=== PATIENT | male | born 1955 | race Caucasian/White ===

== ENCOUNTER → 2016-05-28 | Outpatient (CLI) | payer OTHER ==
[~2016-05-28] VITALS: Ht 167.6 cm; Wt 88.9 kg
[~2016-05-28] MED LIST: ASPEC81 PO
[2016-05-28 13:40] VITALS: BP 157/101; PULSE 82; Ht 167.6 cm; Wt 88.9 kg
== END | disposition home or self-care (01) ==
LOC: C.NEUR 12:52
PROVIDERS: ATTEND Internal Medicine Pulmonary Disease
DX: G47.30 Sleep apnea, unspecified (principal)

== ENCOUNTER → 2016-07-25 | Outpatient (CLI) | payer OTHER ==
[2016-07-25 12:45] LABS: ALT/SGPT 25 U/L (12-78); AST/SGOT 14 U/L (15-37); BLOOD UREA NITROGEN 12 mg/dl (7-18); BUN/CREATININE RATIO 11.9 (10-20); CALCIUM 8.6 mg/dl (8.5-10.1); CARBON DIOXIDE 31 mmol/L (21-32); CHLORIDE 107 mmol/L (98-107); CREATININE 0.98 mg/dl (0.60-1.40); GLUCOSE 99 mg/dl (70-99); POTASSIUM 4.2 mmol/L (3.5-5.1); SODIUM 142 mmol/L (136-145)
[2016-07-25 12:48] LABS: ALKALINE PHOSPHATASE 89 U/L (45-117); CHOLESTEROL 193 mg/dl (0-200); CHOLESTEROL/HDL RATIO 3.8; HDL CHOLESTEROL 51 mg/dl; LDL CHOLESTEROL CALCULATED 126 mg/dl; TRIGLYCERIDES 82 mg/dl (0-150); VERY LOW DENSITY LIPOPROT CALC 16 mg/dl
== END | disposition home or self-care (01) ==
LOC: C.LABPVFM 07:17
PROVIDERS: ATTEND Family Medicine
DX: I10 Essential (primary) hypertension (principal); E78.5 Hyperlipidemia, unspecified

== ENCOUNTER → 2016-08-22 | Outpatient (CLI) | payer OTHER | END | disposition home or self-care (01) | LOC: C.LABPVFM 07:28 | PROVIDERS: ATTEND Family Medicine | DX: Z11.59 Encounter for screening for other viral diseases (principal) ==

== ENCOUNTER → 2017-06-06 | Outpatient (CLI) | payer BC ==
[~2017-06-06] VITALS: Ht 167.6 cm; Wt 90.7 kg
[2017-06-06 13:15] VITALS: BP 167/98; PULSE 72; BMI 32.3
[2017-06-06 13:16] VITALS: BP_SYST 158; BP_SYST 168; BP_DIAS 100; BP_DIAS 97; PULSE 72; Ht 167.6 cm; Wt 90.7 kg
[2017-06-06 13:17] VITALS: BP 158/100
== END | disposition home or self-care (01) ==
LOC: C.NEUR 12:45
PROVIDERS: ATTEND Physician Assistant
DX: G47.30 Sleep apnea, unspecified (principal)

== ENCOUNTER → 2017-12-24 | Outpatient (CLI) | payer BC ==
[2017-12-24 12:54] LABS: BASO % 0.5 %; BASO ABS # 0.03 K/uL (0-0.2); EOS % 1.7 %; HEMATOCRIT 42.2 % (42-52); HEMOGLOBIN 14.1 g/dL (14.0-18.0); IG# 0.01 K/uL (0.00-0.02); LYMPH % 32.7 %; LYMPH ABS # 1.96 K/uL (1.2-3.4); MEAN CELL VOLUME 93.4 fL (80-100); MEAN CORPUSCULAR HEMOGLOBIN 31.2 pg (25-34); MEAN CORPUSCULAR HGB CONC 33.4 g/dl (32-36); MEAN PLATELET VOLUME 10.5 fL (7.4-10.4); MONO % 10.3 %; MONO ABS # 0.62 K/uL (0.11-0.59); NEUT % 54.6 %; NEUT ABS # 3.28 K/uL (1.4-6.5); PLATELET COUNT 288 K/uL (130-400); RED CELL DISTRIBUTION WIDTH CV 13.8 % (11.5-14.5); RED CELL DISTRIBUTION WIDTH SD 47.4 fL (36.4-46.3)
[2017-12-24 13:16] LABS: BLOOD UREA NITROGEN 21 mg/dl (7-18); CALCIUM 8.6 mg/dl (8.5-10.1); CARBON DIOXIDE 28 mmol/L (21-32); CREATININE 0.93 mg/dl (0.60-1.40); GLUCOSE 100 mg/dl (70-99); POTASSIUM 3.8 mmol/L (3.5-5.1); SODIUM 137 mmol/L (136-145)
== END | disposition home or self-care (01) ==
LOC: C.LABPVFM 07:29
PROVIDERS: ATTEND Family Medicine
DX: I10 Essential (primary) hypertension (principal)

== ENCOUNTER 2024-08-27 08:49 | Inpatient (IN) ==
--- NOTE | 2024-08-14 09:11 | Anesthesiology Consultation ---
Date of Service August 14, 2024 Assessment & Plan (1) Encounter for pre-operative examination: - Infectious disease screening: Per assessment on 08/14/24- No known recent infectious disease contacts or current infectious disease symptoms. - Cardiology visit (08/13/24): "ECG finding: His ECG on 07/07/24 in [place] [facility] was interpreted as atrial fibrillation. The ECG was personally reviewed with Dr. Cox and actually appears to be sinus rhythm with PACs. His ECG the following day had similar findings. Patient was provided reassurance in this regard. No current indication for anticoagulation therapy.. Syncope: Episode appeared orthostatic in nature. He had just gotten out of bed to go to the bathroom. He had not been eating normally a few days prior. Will perform a Holter monitor to further evaluate for an arrhythmia, though. Will also obtain an echocardiogram.. BP is mildly elevated today but well controlled with home monitoring. No med changes made.. Preop: Acceptable risk to proceed with upcoming TURP from a cardiovascular standpoint.Follow-up as needed, pending results of echo and Holter monitor." - Cardiology workload message (08/14/24): "I am not sure if the echo can be done prior to the procedure. The Holter monitor will not be able to be read prior since it is a 2 week monitor. However, I do not feel that he needs to have the testing done prior to the surgery, and I did indicate in my note that he is at an acceptable risk to proceed with surgery from a cardiovascular standpoint." - Holter monitor will not be completed prior to surgery (okay per cardiology). Echo does not need to be done prior to surgery from cardiology perspective. Patient acceptable risk for surgery (If Echo completed prior to surgery, will add findings for chart completion). Chart Review Chart Review: Patient NOT seen in Pre Admission Testing History Surgery Operation Date: 08/27/24 07:30 Proposed Procedures p TURP (Transurethral Resection of Prostate) - Sean Freeman MD Height/Weight Height: 5 ft 6 in Weight: 94.347 kg Allergies Allergy/AdvReac Type Severity Reaction Status Date / Time No Known Allergies Allergy Verified 08/14/24 07:28 Medications Home Medications Medication Instructions Recorded Confirmed Last Taken aspirin 81 mg tablet,delayed 1 tab PO DAILY 07/01/18 08/14/24 07/21/18 release (Aspir-Low) multivitamin 1 tab PO DAILY 07/01/18 08/14/24 07/21/18 omega 8-snk-hyk-fish oil 1,200 mg 2 cap PO DAILY 09/01/20 08/14/24 Unknown (144 mg-216 mg) capsule triamterene 37.5 1 tab PO QAM #90 tabs 06/15/24 08/14/24 Unknown mg-hydrochlorothiazide 25 mg tablet sulfamethoxazole 800 1 tab PO BID #14 tabs 08/10/24 08/14/24 Unknown mg-trimethoprim 160 mg tablet (Bactrim DS) losartan 50 mg tablet 50 mg PO QPM 08/14/24 08/14/24 Unknown simvastatin 10 mg tablet 10 mg PO QPM 08/14/24 08/14/24 Unknown Past Medical History Medical History Dyslipidemia History of atrial fibrillation 07/2024 [place] [facility] - was thought to be in A-Fib, consulted with [facility] Seen by [facility] cardio 08/13/24 Hydronephrosis Hypertension Obstructive sleep apnea CPAP UTI (urinary tract infection) Will complete bactrim 08/16/24 Past Family History Family History Mother Diabetes Grandmother (Maternal) Diabetes Other Colonic polyp No family history of breast cancer No family history of cancer Denies family history of Ovarian cancer Prostate cancer Myocardial infarction Breast cancer Colorectal cancer Cancer Past Surgical History Surgical History History of bilateral cataract extraction History of colonoscopy (2018) History of tooth extraction History of wisdom tooth extraction Hx of LASIK R/L Hx of vasectomy Social History Smoking Status: Never smoker Do You Dip or Chew Tobacco: No Hx Alcohol Use: Yes Alcohol type: beer and wine alcohol intake frequency: holidays/special occasions only Hx Substance Use: No substance use type: does not use Lab Results Anesthesia Preop Results Results Anesthesia Widget: WBC 7.51 K/ul (4.8-10.8) 08/06/24 Hgb 13.7 g/dl (14.0-18.0) L 08/06/24 Hct 40.8 % (42.0-52.0) L 08/06/24 Plt 327 K/uL (130-400) 08/06/24 Na 139 mmol/L (136-145) 08/06/24 K 4.4 mmol/L (3.5-5.1) 08/06/24 Cl 102 mmol/L (98-107) 08/06/24 CO2 31 mmol/L (21-32) 08/06/24 BUN 23 mg/dl (6-23) 08/06/24 Creat 1.31 mg/dl (0.6-1.4) 08/06/24 Glucose Level 102 mg/dl (70-99(Fasting)) H 08/06/24 Testing Laboratory Results UA (07/15/24): negative Urine culture (08/06/24): staphylococcus epidermidis Electrocardiogram Date: 07/08/24 SR with PACs at 96bpm. Minimal voltage criteria for LVH, may be normal variant (R in aVL). NS STA. Chest X-Ray Date: 07/08/24 Findings: + NAD
[2024-08-27] MEDS: LACTATED RINGER'S 1,000 ML IV SCH (08:52)
[2024-08-27] MEDS ORDERED: MIDAZOLAM HCL 1 MG/ML 2ML VIAL ONE (09:00)
[2024-08-27] MEDS ORDERED: ONDANSETRON INJ 2 MG/ML 2 ML VIAL ONE (09:00)
[2024-08-27] MEDS ORDERED: DEXAMETHASONE SOD INJ 4 MG/ML VIAL ONE (09:00)
[2024-08-27] MEDS ORDERED: fentaNYL citrate PF 100 MCG/2 ML VIAL ONE (09:00)
[2024-08-27] MEDS ORDERED: PROPOFOL IV EMULSION 10 MG/ML 20 ML VIAL IV ONE (09:00)
[2024-08-27] MEDS ORDERED: LIDOCAINE 2% 2 ML VIAL/AMP(20MG/ML) INFIL ONE (09:00)
[2024-08-27] MEDS ORDERED: NALOXONE HCL 0.4 MG/1 ML VIAL/CARP IV PRN (09:04)
[2024-08-27] MEDS ORDERED: PROMETHAZINE HCL 6.25 MG in SODIUM CHLORIDE 0.9% 50 ML IV PRN (09:04)
[2024-08-27] MEDS ORDERED: ATROPINE SULFATE 0.1 MG/ML 10ML SYR IV PRN (09:04)
[2024-08-27] MEDS ORDERED: FLUMAZENIL 0.1 MG/1 ML 10 ML VIAL IV PRN (09:04)
[2024-08-27] MEDS ORDERED: ONDANSETRON INJ 2 MG/ML 2 ML VIAL IV PRN ×2 (09:04→12:49)
[2024-08-27] MEDS ORDERED: fentaNYL citrate PF 100 MCG/2 ML VIAL IV PRN (09:04)
[2024-08-27] MEDS ORDERED: ePHEDrine sulfate 50 MG/ML AMP IV PRN (09:04)
[2024-08-27] MEDS ORDERED: ePHEDrine sulfate 50 MG/5 ML SYR ONE ×2 (09:25→10:53)
--- NOTE | 2024-08-27 10:00 | History & Physical Bridge Note ---
Date of Service August 27, 2024 History & Physical Bridge Note I have examined the patient, reviewed the History & Physical and in the interval since the performance of the History & Physical I have noted the following changes of clinical significance: no changes noted
[2024-08-27] MEDS: ceFAZolin 2000MG 2,000 MG/15 ML SYR IV SCH ×2 (10:08→18:33)
[2024-08-27] MEDS ORDERED: PHENAZOPYRIDINE HCL 200 MG TAB PO PRN (11:22)
[2024-08-27] MEDS ORDERED: oxyCODONE HCL IR 5 MG TAB (IMMEDIATE RELEASE) PO PRN (11:22)
[2024-08-27] MEDS ORDERED: ACETAMINOPHEN 325 MG TAB PO PRN (11:22)
--- NOTE | 2024-08-27 11:22 | Operative Report ---
PG Post Operative Report Pre & Post Diagnosis Operation Date: 08/27/24 10:15 Pre-Op Diagnosis: Unspecified Retention of Urine, Hydronephrosis Post-Op Diagnosis: Unspecified Retention of Urine, Hydronephrosis I identified the patient and participated in the time-out.: Yes Procedure Operation Date: 08/27/24 10:15 Actual Procedures p Transurethral Resection of Prostate - Sean Freeman MD Surgeon Sean Freeman MD An/Syq 13 Nav/C2 Operator None Estimated Blood Loss 20 Findings Consistent with Post-Op Diagnosis Specimens Prostate chips Drains 22 Slovak three-way Wright catheter, 20 cc in balloon, CBI running Anesthesia Type General Complications none Disposition Accompanied Patient To Recovery: Yes Disposition: Recovery Room Indications This is a 69-year-old male followed by urology for incomplete bladder emptying/urinary retention. He is brought to the OR for transurethral resection of the prostate. Description of Procedure The patient was identified in the holding area and informed consent was confirmed. He was taken to the operating room where general anesthesia was initiated. He was placed in the dorsal lithotomy position with all pressure points appropriately padded. He was prepped and draped in the usual sterile fashion and a preoperative timeout was performed. A well-lubricated resectoscope was inserted per urethra and panendoscopy was performed. His prostate was trilobar and significantly enlarged with intravesical protrusion. The prostate was systematically resected, starting with the median lobe, taking resection down until the capsular fibers could be identified. The proximal resection was up to the bladder neck, taking care not to injure the ureteral orifices. The distal resection extended to the verumontanum, taking care to avoid the sphincter. The lateral lobes were then resected down to the level of the capsule. Meticulous hemostasis was obtained. The prostate chips were evacuated from the bladder and sent for pathologic analysis. A final inspection demonstrated no injury to the ureteral orifices or the sphincter, no remaining prostate chips, and good hemostasis at low pressure. A 22 Fr 3-way wright catheter was placed. The balloon was inflated with 20 mL of normal saline and the catheter was attached to gravity drainage with continuous irrigation running. The patient was then awakened from anesthesia and was brought to the PACU in stable condition. I attest to the content of the Intraoperative Record and any orders documented therein. Any exceptions are noted below.
--- NOTE | 2024-08-27 12:52 | Anesthesiology Progress Note ---
Date of Service August 27, 2024 Anesthesia Post Procedure Vital Signs Vital Signs: Temp Pulse Pulse Resp BP Pulse Ox O2 Del Method 08/27/24 12:45 36.4 C L 70 12 128/75 95 Room Air 08/27/24 12:35 72 12 124/72 96 Room Air 08/27/24 12:25 70 12 125/73 95 Room Air 08/27/24 12:15 70 18 133/81 96 Room Air 08/27/24 12:05 70 18 137/81 97 Room Air 08/27/24 11:55 67 12 120/86 96 Room Air 08/27/24 11:45 68 12 116/63 96 Room Air 08/27/24 11:35 66 14 122/69 97 Room Air 08/27/24 11:25 71 12 120/71 97 Room Air 08/27/24 11:17 36 C L 76 18 143/77 H 99 Oxymask 08/27/24 08:54 36.5 C 76 18 158/83 H 98 Room Air O2 Flow Rate 08/27/24 12:45 08/27/24 12:35 08/27/24 12:25 08/27/24 12:15 08/27/24 12:05 08/27/24 11:55 08/27/24 11:45 08/27/24 11:35 08/27/24 11:25 08/27/24 11:17 6 08/27/24 08:54 Pain Intensity Penis: Pain Intensity: 2 Transfer of Care Handoff Completed per policy Notes Mental Status: alert / awake / arousable Patient Amnestic to Procedure: Yes Nausea / Vomiting: adequately controlled Pain: adequately controlled Airway Patency, RR, SpO2: stable & adequate BP & HR: stable & adequate Hydration State: stable & adequate Anesthetic Complications: no major complications apparent
[2024-08-27] MEDS: HEPARIN SOD 5,000 UNIT/0.5 ML VIAL SQ SCH (15:02)
[2024-08-27] MEDS: SIMVASTATIN 10 MG TAB PO SCH (20:28)
[2024-08-27] MEDS: LOSARTAN POTASSIUM 50 MG TAB PO SCH (20:28)
[2024-08-28] MEDS: MELATONIN 3 MG TAB PO PRN (01:56)
[2024-08-28] MEDS: TRIAMTERENE/HCTZ 37.5/25MG TAB PO SCH (08:01)
[2024-08-28 08:03] LABS: Basophils # (auto) 0.01 K/uL (0.00-0.20); Basophils % (auto) 0.1 %; Hematocrit (blood only) 34.8 % (42.0-52.0); Immature Granulocytes # (auto) 0.04 K/uL (0.01-0.20); Immature Granulocytes % (auto) 0.3 %; Lymphocytes # (auto) 1.47 K/uL (1.20-3.40); Lymphocytes % (auto) 12.2 %; Mean Corpuscular Hemoglobin 31.6 pg (25.0-34.0); Mean Corpuscular Hgb Conc 34.5 g/dL (32.0-36.0); Mean Corpuscular Volume 91.6 fL (80.0-100.0); Mean Platelet Volume 9.6 fL (9.4-12.4); Monocytes # (auto) 1.22 K/uL (0.11-0.59); Monocytes % (auto) 10.1 %; Neutrophils # (auto) 9.29 K/uL (1.40-6.50); Neutrophils % (auto) 77.3 %; Platelet Count 279 K/uL (130-400); RDW Coefficient of Variation 14.2 % (11.5-14.5); White Blood Count 12.03 K/ul (4.8-10.8)
[2024-08-28 08:36] LABS: BUN Creatinine Ratio 13.9 (10-20); Calcium 8.5 mg/dl (8.6-10.3); Creatinine Clr Calc Pharmacy 61.9 ml/min; Potassium 3.9 mmol/L (3.5-5.1)
--- NOTE | 2024-08-28 08:58 | Urology Progress Note ---
Date of Service August 28, 2024 Assessment & Plan (1) Urinary retention: (2) Hydronephrosis: Plan: - Pt POD#1 s/p TURP with Dr. Freeman - Doing well, progressing as expected - Afebrile, hemodynamically stable - Lab work reviewed - creatinine 1.22, WBC 12.03, Hgb 12.0 - 3 way Yadav catheter draining clear urine with minimal pink tinge with CBI on slow - CBI clamped during exam - will reassess later this AM - Anticipate home with Yadav catheter later today presuming urine appropriate and he continues to progress as expected - Maintain Yadav catheter upon discharge - Expected clinical course reviewed, all questions answered - Will arrange outpatient follow-up with our service for voiding trial Admission and Anticipated Discharge Date Admission Date: August 27, 2024 Subjective Patient seen and examined at bedside this morning. No acute issues overnight. Reports occasional bladder spasms. Denies nausea, vomiting, fever or chills. Yadav draining relatively clear urine with CBI on slow. CBI clamped during exam. Review of Systems Constitutional: as per Subjective / HPI Genitourinary: + as per Subjective / HPI Physical Exam Constitutional: well developed and well nourished; no acute distress Respiratory: normal respiratory effort; no respiratory distress and no labored breathing Gastrointestinal (Abdomen): Inspection/Auscultation: abdomen normal to inspection Musculoskeletal: Head/Neck/Chest: normocephalic Neurologic: moves all extremities and awake Psychiatric: Orientation: alert and oriented x 3 Genitourinary: Yadav patent and draining clear urine with minimal pink tinge, CBI on slow. CBI clamped during exam. Results & Data Vital Signs (Past 12 Hours) Vital Signs Temp Pulse Resp BP Pulse Ox O2 Del Method 08/28/24 07:01 36.9 C 71 16 142/80 H 95 Room Air 08/28/24 04:15 36.9 C 77 18 129/77 97 Room Air 08/27/24 22:52 36.5 C 84 18 151/74 H 96 Room Air PG Care Time/CCT Total # of Minutes Spent Total Time Spent with Patient: Total time spent is greater than 50% in coordination of care (as documented) at patient's floor/unit and/or counseling patient: Coding Level of Care Code None Diagnoses Urinary retention R33.9 Hydronephrosis N13.30
--- NOTE | 2024-08-28 08:59 | Discharge Summary ---
Date of Service August 28, 2024 Admission HPI Per Admitting Provider Patient with urinary retention hydronephrosis here for transurethral resection of the prostate. Principal Diagnosis Urinary retention, hydronephrosis Discharge Exam Constitutional well developed and well nourished; no acute distress Respiratory normal respiratory effort; no respiratory distress and no labored breathing Gastrointestinal (Abdomen) Inspection/Auscultation: abdomen normal to inspection Musculoskeletal Head/Neck/Chest: normocephalic Neurologic moves all extremities and awake Psychiatric Orientation: alert and oriented x 3 Genitourinary urine clear with minimal pink tinge with CBI clamped Discharge Data Allergies Allergy/AdvReac Type Severity Reaction Status Date / Time No Known Allergies Allergy Verified 08/14/24 07:28 Procedures Performed Operation Date: 08/27/24 10:15 Actual Procedures p Transurethral Resection of Prostate(Not Applicable) - Sean Freeman MD Hospital Course (1) Urinary retention: (2) Hydronephrosis: - Pt POD#1 s/p TURP with Dr. Freeman - Doing well, progressing as expected - Afebrile, hemodynamically stable - Lab work reviewed - creatinine 1.22, WBC 12.03, Hgb 12.0 - 3 way Yadav catheter draining clear urine with minimal pink tinge with CBI on slow - CBI clamped during exam - will reassess later this AM - Anticipate home with Yadav catheter later today presuming urine appropriate and he continues to progress as expected - Maintain Yadav catheter upon discharge - Expected clinical course reviewed, all questions answered - Will arrange outpatient follow-up with our service for voiding trial Total Time Total Time Spent Total Time Spent (In Minutes): 25 Discharge Plan Discharge Items Patient Disposition: Home - Self-Care Reason For Visit: BHP,URINARY RETENTION Discharge Diagnosis: BPH, urinary retention Activity: Per Instructions section Lifting: No more than 25 pounds Bathing Comment: Okay to shower after discharge Sexual Activity: Wait until after follow-up appointment Exercise/Sports: Wait until after follow-up appointment Non-emergency contact: Urologist Call non-emergency contact if: your temperature is above 101 Follow-up/Referrals: Deana Hoskins MD [Primary Care Provider] - Diet: Carb Consistent or DM2 Addtl Attending Provider Instructions: The surgery you had was TURP (Trans-urethral resection of the prostate) Please take all medications as prescribed and keep all follow-ups as scheduled. Please call our office at [phone] with any questions, concerns or need to reschedule appointments for any reason. We are happy to assist you. Medications: -Please resume your normal medications as previously prescribed. -Take a stool softener such as colace or Miralax to keep your stool soft. The goal is one soft bowel movement daily. -For pain, it is ok to take tylenol. You can also try pyridium (also known as AZO). This can be gotten [id number]. It turns your urine a bright orange color. -You have been prescribed an antibiotic (Bactrim). Please take this twice daily for the next 5 days. Activity: -Avoid straining or bearing down for the next 1-2 weeks. This can cause or increase bleeding. Avoiding straining to have bowel movements. -If you notice blood in your urine, try to remain well-hydrated to keep the urine dilute. -For the next 2 weeks, avoid activities that put pressure on your perineum (area behind the scrotum), such as riding a bike. What to expect after your procedure: -If a catheter was left in place, we will have you come to the office in the next couple days to remove it. -You may notice some blood in your urine. As long as your catheter is draining, this is ok. -You may have increased urinary frequency and urgency; this should improve with time. -You may notice some urinary leaking, especially with coughing/sneezing/bearing down. This should improve with time. When to call [facility] at [phone]: Fever of 101F or higher Heavy bleeding Pain that is not controlled with medicine Uncontrolled vomiting Problems urinating or inability to urinate Our office will call to schedule an appointment for catheter removal. Pending Studies at Discharge: Yes Stand-Alone Forms: [facility] Medications and DC Order Prescriptions: New sulfamethoxazole-trimethoprim [Bactrim DS] 800-160 mg tablet 1 tab PO BID 5 Days Qty: 10 0RF Continued sulfamethoxazole-trimethoprim [Bactrim DS] 800-160 mg tablet 1 tab PO BID Qty: 14 0RF Patient Comments: "This will be done 08/16/24" triamterene-hydrochlorothiazid 37.5-25 mg tablet 1 tab PO QAM Qty: 90 3RF simvastatin 10 mg tablet 10 mg PO QPM Qty: 90 3RF Rx Instructions: TAKE 1 TABLET DAILY omega 2-cwv-rqc-fish oil 1,200 (144-216) mg capsule 2 cap PO DAILY multivitamin Tablet 1 tab PO DAILY aspirin [Aspir-Low] 81 mg Tablet,Delayed Release (Dr/Ec) 1 tab PO DAILY losartan 50 mg tablet 50 mg PO QPM Discharge Orders: Discharge Order (Routine); Ordered 08/28/24 Ordered By: Janki Spring Admission Data Admit Date/Time: 08/27/24 12:49 Attending Provider: Sean Freeman Admit Provider: e[place] Freeman Primary Care Provider: Deana Hoskins Coding Level of Care Code 90464 IN/OBS DISCH 30 MIN/LESS Diagnoses Urinary retention R33.9 Hydronephrosis N13.30
[2024-08-28 11:37] VITALS: BP 123/75; PULSE 82; RESP 17; TEMP 97.9; O2SAT 96
== END 2024-08-28 12:28 | disposition home or self-care (01) | DRG 713 ==
LOC: ASU 08:49 → OBSVTOIN 12:49 → INTOOBSV 12:49 → 3W 12:49 → PACUINP 14:01 → 3W 14:22